=== PATIENT | female | born 1955 | race African-American/Black ===

== ENCOUNTER 2017-10-18 09:42 | Emergency (ER) | payer OTHER ==
[2017-10-18 11:22] LABS: ALT (SGPT) 29 U/L (8-55); AST (SGOT) 39 U/L (5-34); Alkaline Phosphatase 56 U/L (40-150); Anion Gap 16 mmol/L (10-20); BUN (Urea Nitrogen) 19 mg/dL (9.8-20.1); Bilirubin, Total 0.9 mg/dL (0.2-1.2); Calc. Creatinine Clearance 0 mL/min (70-130); Carbon Dioxide 23 mmol/L (23-31); Chloride 99 mmol/L (98-107); Estimated GFR-MDRD 40; Globulin 3.6 g/dL (2.4-3.5); Glucose 111 mg/dL (80-115); Potassium 3.3 mmol/L (3.5-5.1); Protein, Total 7.6 g/dL (6.0-8.3); Sodium 135 mmol/L (136-145)
[2017-10-18 11:27] LABS: Troponin I 0.023 ng/mL (< 0.028)
[2017-10-18 11:31] LABS: CKMB 10.8 ng/mL (0-6.6); Critical Call CKMBM 0
[2017-10-18 11:43] LABS: Anisocytosis MODERATE=16-30 cells (100X) (0-5/hpf); Hemoglobin 11.9 g/dL (12.0-16.0); Lymphocytes 31 % (21-51); MDiff Complete? YES; Mean Corpuscular HGB CONC 30.6 g/dL (32.0-36.0); Mean Corpuscular Hemoglobin 27.7 pg (27.0-31.0); Mean Corpuscular Volume 90.5 fl (81.0-99.0); Mean Platelet Volume 8.1 fL (7.4-10.4); Monocytes 11 % (0-10); Neutrophil 58 % (42-75); PLT Morphology Comment Appears Adequate; Platelet Count 311 thou/uL (130-400); Polychromasia SLIGHT = 2-3 cells (100X) (0-2/hpf); RBC Distribution Width 20.2 % (11.5-14.5); Red Blood Cell (RBC) Count 4.31 mill/uL (4.20-5.40); White Blood Cell (WBC) Count 4.5 thou/uL (4.8-10.8)
[2017-10-18] MEDS ORDERED: ISOVUE-370 76%-LOCM 1 ML ONE (11:46)
[2017-10-18 13:30] LABS: Bilirubin Small (Negative); Blood, Urine Negative (Negative); Clarity CLEAR (Clear); Glucose, Urine (Dipstick) Negative (Negative); Leukocyte Moderate (Negative); Nitrite Negative (Negative); Protein, Urine (Dipstick) Negative (Neg-Trace); Urobilinogen 0.2 mg/dL (0.2-1.0); pH, Urine 5.5 (5.0-9.0)
[2017-10-18 13:31] LABS: Bacteria/HPF None Seen HPF (None Seen); Hyaline Casts/LPF 4-6 HYALINE CAST LPF (0-3 Hyaline); Pathc Cast-AUWi Flag 1.16 (0-2.49); RBC/HPF 0-3 HPF (0-3)
[2017-10-18 13:35] LABS: Specific Gravity, Urine 1.045 (1.002-1.036)
--- NOTE | 2017-10-18 13:42 | CT ---
CT PULMONARY ANGIOGRAM CHEST WITH IV CONTRAST AND 3D MIP RECONSTRUCTIONS: Date: 10/18/17 PROVIDED CLINICAL HISTORY: Difficulty breathing and chest tightness. FINDINGS: There is no evidence for central or segmental pulmonary embolus. There is suboptimal opacification of the systemic arterial circulation at and distal to the aortic ar ch. There is a heterogeneous appearance to the opacification of the descending thoracic aorta. While some of this could be on the basis of mixing artifact, there are apparent linear areas of altered CT density in locations characteristic for dissection. Dissection flap is most strongly suggested on axi al image 113 involving the proximal abdominal aorta. The lungs appear free of significant opacity. The airway appears patent. Right apical pleural parench ymal scarring type changes are seen anteriorly. The visualized portions of the upper abdomen demonstr ate an unremarkable CT appearance for the phase of contrast in which the study was acquired, with the exception of prominent vascular calcification involving the abdominal aorta and proximal renal arter ies. IMPRESSION: 1. No evidence for central or segmental pulmonary embolus. 2. Abnormal appearance to the descending thoracic aorta, with findings suspicious for dissection. Mi sarah artifact could also produce this appearance, but is felt less likely. Consider repeat examinatio n when the patient's renal function will tolerate. Findings discussed with Dr. Flores in the emergency department at 1209 hours on 10/18/17. CODE CR. POS: [place]
--- NOTE | 2017-10-18 14:46 | CON ---
DATE OF CONSULTATION: 10/18/2017 REASON FOR CONSULTATION: Chest pain, possible dissection. HISTORY OF PRESENT ILLNESS: Ms. Zuluaga is a 62-year-old -[place] female, who comes to the [facility] for chest pain. She started having this earlier today, left-sided, currently radiated to the left abdomen. She comes in, and was evaluated. Troponin initially was negative, although CK-MB was high. A CT of the chest per pulmonary embolism protocol was performed and it was read out as having possibly dissection in the distal arch, proximal descending thoracic aorta. So, Cardiology is being consulted for further evaluation. It is thought to be prohibitive to repeat a CT with contrast in th e aortic portion given the patient's creatinine. So, I am being asked to perform a transesophageal e cho to rule this out, as this would mean that she needs to transfer. Currently, Ms. Zuluaga continues to have chest pain. She states it is a little bit better than before, but is still present. PAST MEDICAL HISTORY: 1. Hypertension. 2. Hepatitis C. 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 5. Lung cancer. PAST SURGICAL HISTORY: Total laryngectomy and lung surgery for lung cancer. ALLERGIES: No known drug allergies. OUTPATIENT MEDICATIONS: 1. Pantoprazole. 2. Ondansetron. 3. Nifedipine 60 mg a day. ALLERGIES: ROCEPHIN. SOCIAL HISTORY: A [id number] smoking history, quit few years ago when diagnosed with cancer. She drinks 1 alcoholic beverage a week. No drug use, but she was a previous heavy drug user and alcohol abuser per records. REVIEW OF SYSTEMS: A 12-point review of systems was done and is all negative unless stated in the hi story of present illness. FAMILY HISTORY: Noncontributory. PHYSICAL EXAMINATION: VITAL SIGNS: Blood pressure 160/100, respiratory rate 18, satting 98% on 2 liters, heart rate of 82. GENERAL: Awake, alert and oriented x3, in no distress. HEENT: Normocephalic and atraumatic. NECK: Supple. LUNGS: Clear. CARDIOVASCULAR: S1 and S2, no S3 or S4, no murmurs. ABDOMEN: Soft, positive bowel sounds. EXTREMITIES: No edema. Vascular pulses are equal on bilateral upper extremities and bilateral lower extremities. LABORATORY WORK: Reviewed. Sodium 135, potassium 3.3, creatinine is 1.58, and this is actually wors e than it has ever been, her baseline 0.7-0.8 range. CK-MB was 10. Troponin was 0.023. BNP was 31. CK was 234. EKG was reviewed. CTA was reviewed. ASSESSMENT: 1. Chest pain. 2. Possible aortic dissection. 3. History of lung cancer and laryngeal cancer. 4. Atherosclerotic disease, more significant in the renal arteries by CT. PLAN: 1. We will do an emergent transesophageal echo to reevaluate her thoracic aorta. If we cannot see a nything there, there is still an indication to do a contrast study, as my transesophageal echo will n ot be able to see the past the aortic arch, but if we are able to see a dissection flap on the transe sophageal echo, we would have made the diagnosis and plan on transferring to [place]. 2. If we end up not diagnosing any sort of dissection, then she needs to be still admitted for rule out, as she does have significant risk factors for coronary artery disease. Thank you for letting us participate in the care of your patient. We will follow.
[2017-10-18] MEDS ORDERED: Benzocaine 20% Spray 60 ML CAN ONE (15:01)
[2017-10-18] MEDS ORDERED: Esmolol 2,500 MG/NS 250 ML 250 ML ONE (15:24)
--- NOTE | 2017-10-18 16:02 | ECHO ---
DATE OF SERVICE: 10/18/2017. A transesophageal echo was performed for concern of dissection. Patient has ongoing chest pain and hypertension. The Anesthesiology department provided with sedation for the patient. Please see their notes for det ails. After adequate sedation was achieved, the transesophageal probe was inserted into the mouth an d into the esophagus with some difficulty. Multiplanar views were then obtained. The thoracic desce nding aorta seems to be intact with atherosclerotic disease. At the junction of the arch and the desc ending aorta. There is what appears to be a flap. This could be one of two things. It could be a di ssection plane versus an ulcerated plaque with a hematoma into the subintimal space. There is no percy w by color Doppler and in the space passed the flap only in the aorta which is still around and widel y patent. The atherosclerotic disease surrounding the aorta at that level actually goes around past the flap that is seen. I do not see any extravasation of blood outside of the aorta. The LV is normal size. LV systolic function is about 55-60% with no regional wall motion abnormalit ies. Aortic valve is intact with three cusps, no stenosis or regurgitation. Aortic root appears to be intact, normal size with no flap. There is atherosclerotic disease. Mitral valve has mild bileaflet mitral valve prolapse with mild MR, no stenosis. Tricuspid valve is structurally normal, no stenosis. Moderate TR. Pulmonary valve not well seen. No effusions are seen. CONCLUSIONS: 1. Normal systolic function, EF of 55-60%. 2. Mild bileaflet mitral valve prolapse with mild MR. 3. Tricuspid aortic valve with no evidence of stenosis or regurgitation. 4. Aortic root appears to be intact with atherosclerotic disease. 5. Descending thoracic aorta is intact with a grade III/V atherosclerotic disease. 6. The junction of the aortic arch and the thoracic descending aorta has an intimal flap suggestive of an aortic dissection. Possibilities also include an ulcerative plaque with subintimal hematoma. Would recommend repeat CT of the chest if patient remains stable. Otherwise, she needs to be transfe rred to [place] for a facility that has the capability of aortic surgery. This was discussed with Dr Renea Flores at the moment of the procedure and plans for transfer are already in place.
== END 2017-10-18 15:52 | disposition short-term general hospital (02) ==
LOC: ERS 09:42
DX: I71.01 Dissection of thoracic aorta (principal); J45.909 Unspecified asthma, uncomplicated; I10 Essential (primary) hypertension; Z85.118 Personal history of other malignant neoplasm of bronchus and lung; Z87.891 Personal history of nicotine dependence
CPT/HCPCS: 36415; 71275; 80053; 81003; 81015; 82553; 83880; 84484; 85025; 87040; 93005; 93312; 96361; 96374; 99152; 99153

== ENCOUNTER 2022-10-12 09:28 | Emergency (ER) | payer MEDICARE, OTHER ==
[2022-10-12 10:17] LABS: Bilirubin Negative (Negative); Blood, Urine Negative (Negative); Clarity Clear (Clear); Glucose, Urine (Dipstick) Normal (Negative); Ketone, Urine Negative (Negative); Leukocyte Negative Leu/uL (Negative); Nitrite Negative (Negative); Protein, Urine (Dipstick) Negative (Neg-Trace); Specific Gravity, Urine 1.015 (1.002-1.036)
[2022-10-12 10:20] LABS: Amphetamine Not Detected (NotDetected); Barbiturates Screen Not Detected (NotDetected); Benzodiazepine Screen Not Detected (NotDetected); Cocaine Metabolite Screen Not Detected (NotDetected); Methadone Not Detected (NotDetected); Methamphetamine Not Detected (NotDetected); Opiate Screen Not Detected (NotDetected); Oxycodone Screen Not Detected (NotDetected); Phencyclidine (PCP) Not Detected (NotDetected); THC/Cannabinoid Screen Detected (NotDetected); Tricyclic Screen Not Detected (NotDetected)
[2022-10-12 10:30] LABS: #Eosinphils 0.1 thou/uL (0.0-0.7); #Lymphocytes 2.1 thou/uL (1.20-3.40); #Monocytes 0.5 thou/uL (0.11-0.59); %Basophils 0.7 % (0.0-1.0); %Eosinophils 2.5 % (0.0-10.0); %Lymphocytes 36.5 % (21.0-51.0); %Monocytes 8.6 % (0.0-10.0); %Neutrophils 51.8 % (42.0-75.0); Hemoglobin 14.7 g/dL (12.0-16.0); Mean Corpuscular HGB CONC 32.2 g/dL (32.0-36.0); Mean Corpuscular Hemoglobin 29.6 pg (27.0-31.0); Mean Corpuscular Volume 92.1 fl (78.0-98.0); Mean Platelet Volume 8.5 fL (7.4-10.4); Platelet Count 219 10x3/uL (130-400); RBC Distribution Width 13.5 % (11.5-14.5); Red Blood Cell (RBC) Count 4.94 mill/uL (4.20-5.40); White Blood Cell (WBC) Count 5.9 10x3/uL (4.8-10.8)
[2022-10-12 10:50] LABS: ALT (SGPT) 19 U/L (8-55); AST (SGOT) 30 U/L (5-34); Acetaminophen Less than 10.0 mcg/mL (10.0-30.0); Albumin 3.6 g/dL (3.4-4.8); Alcohol Less than 10 mg/dL (Less than 10); Alkaline Phosphatase 75 U/L (40-110); Anion Gap 17 mmol/L (10-20); BUN (Urea Nitrogen) 15 mg/dL (9.8-20.1); Bilirubin, Total 0.9 mg/dL (0.2-1.2); Calc. Creatinine Clearance 0 mL/min (70-130); Calcium 9.2 mg/dL (7.8-10.44); Carbon Dioxide 18 mmol/L (23-31); Chloride 104 mmol/L (98-107); Estimated GFR 96; Globulin 3.4 g/dL (2.4-3.5); Glucose 78 mg/dL (80-115); Potassium 5.3 mmol/L (3.5-5.1); Salicylate Less than 8.0 mg/dL (15.0-30.0); Sodium 134 mmol/L (136-145)
== END 2022-10-12 11:41 | disposition left against medical advice (07) ==
LOC: ERS 09:28
DX: R41.82 Altered mental status, unspecified (principal); F03.90 Unspecified dementia, unspecified severity, without behavioral disturbance, psychotic disturbance, mood disturbance, and anxiety; R00.1 Bradycardia, unspecified; I10 Essential (primary) hypertension; F17.200 Nicotine dependence, unspecified, uncomplicated; E11.9 Type 2 diabetes mellitus without complications; Z85.118 Personal history of other malignant neoplasm of bronchus and lung
CPT/HCPCS: 51701; 70450; 71045; 80053; 80306; 80307; 81003; 83605; 83735; 84484; 85025; 87086; 93005

== ENCOUNTER 2022-10-20 16:27 | Emergency (ER) | payer MEDICARE, OTHER ==
[2022-10-20 17:23] LABS: #Eosinphils 0.1 thou/uL (0.0-0.7); #Lymphocytes 1.2 thou/uL (1.20-3.40); #Monocytes 0.7 thou/uL (0.11-0.59); %Basophils 0.1 % (0.0-1.0); %Eosinophils 1.8 % (0.0-10.0); %Lymphocytes 16.8 % (21.0-51.0); %Neutrophils 71.5 % (42.0-75.0); Hemoglobin 11.9 g/dL (12.0-16.0); Mean Corpuscular HGB CONC 33.9 g/dL (32.0-36.0); Mean Corpuscular Hemoglobin 30.6 pg (27.0-31.0); Mean Corpuscular Volume 90.3 fl (78.0-98.0); Mean Platelet Volume 8.2 fL (7.4-10.4); Platelet Count 221 10x3/uL (130-400); RBC Distribution Width 13.7 % (11.5-14.5); Red Blood Cell (RBC) Count 3.89 mill/uL (4.20-5.40)
[2022-10-20 17:48] LABS: ALT (SGPT) 15 U/L (8-55); AST (SGOT) 23 U/L (5-34); Alkaline Phosphatase 64 U/L (40-110); Anion Gap 13 mmol/L (10-20); BUN (Urea Nitrogen) 16 mg/dL (9.8-20.1); Bilirubin, Total 0.2 mg/dL (0.2-1.2); CK (CPK) 75 U/L (29-168); Calc. Creatinine Clearance 0 mL/min (70-130); Calcium 8.6 mg/dL (7.8-10.44); Carbon Dioxide 23 mmol/L (23-31); Chloride 97 mmol/L (98-107); Estimated GFR 92; Globulin 2.7 g/dL (2.4-3.5); Glucose 136 mg/dL (80-115); Lipase 79 U/L (8-78); Potassium 4.3 mmol/L (3.5-5.1); Protein, Total 5.7 g/dL (5.8-8.1); Sodium 129 mmol/L (136-145)
[2022-10-20 18:28] LABS: Bilirubin Negative (Negative); Blood, Urine Negative (Negative); Clarity Clear (Clear); Glucose, Urine (Dipstick) Normal (Negative); Ketone, Urine Negative (Negative); Leukocyte Negative Leu/uL (Negative); Nitrite Negative (Negative); Protein, Urine (Dipstick) Negative (Neg-Trace); Specific Gravity, Urine 1.011 (1.002-1.036); Urobilinogen Normal mg/dL (Less than 2)
== END 2022-10-20 21:00 ==
LOC: ERS 16:27
DX: R41.82 Altered mental status, unspecified (principal); I10 Essential (primary) hypertension; E11.9 Type 2 diabetes mellitus without complications
CPT/HCPCS: 36415; 70450; 71045; 81003; 82140; 82550; 83690; 83880; 84443; 84484; 85025; 93005

== ENCOUNTER 2022-10-31 08:24 | Emergency (ER) | payer MEDICARE, OTHER ==
[2022-10-31] MEDS ORDERED: Haloperidol Lactate 5 MG/ML VIAL ONE (09:45)
[2022-10-31 10:01] LABS: #Basophils 0.1 thou/uL (0.0-0.2); #Eosinphils 0.1 thou/uL (0.0-0.7); #Lymphocytes 2.6 thou/uL (1.20-3.40); #Monocytes 0.6 thou/uL (0.11-0.59); #Neutrophils 2.6 thou/uL (1.40-6.50); %Basophils 1.2 % (0.0-1.0); %Eosinophils 2.3 % (0.0-10.0); %Lymphocytes 42.5 % (21.0-51.0); %Monocytes 10.3 % (0.0-10.0); %Neutrophils 43.6 % (42.0-75.0); Hemoglobin 12.8 g/dL (12.0-16.0); Mean Corpuscular HGB CONC 31.7 g/dL (32.0-36.0); Mean Corpuscular Hemoglobin 28.6 pg (27.0-31.0); Mean Corpuscular Volume 90.3 fl (78.0-98.0); Mean Platelet Volume 7.5 fL (7.4-10.4); Platelet Count 277 10x3/uL (130-400); RBC Distribution Width 13.7 % (11.5-14.5); Red Blood Cell (RBC) Count 4.46 mill/uL (4.20-5.40); White Blood Cell (WBC) Count 6.1 10x3/uL (4.8-10.8)
[2022-10-31] MEDS ORDERED: Midazolam HCl 2 mg/2 ml Vial ONE (10:22)
[2022-10-31 10:32] LABS: ALT (SGPT) 24 U/L (8-55); AST (SGOT) 38 U/L (5-34); Albumin 4.1 g/dL (3.4-4.8); Alkaline Phosphatase 97 U/L (40-110); Anion Gap 15 mmol/L (10-20); BUN (Urea Nitrogen) 15 mg/dL (9.8-20.1); Bilirubin, Total 0.7 mg/dL (0.2-1.2); Calc. Creatinine Clearance 0 mL/min (70-130); Carbon Dioxide 25 mmol/L (23-31); Chloride 103 mmol/L (98-107); Estimated GFR 78; Globulin 4.5 g/dL (2.4-3.5); Glucose 82 mg/dL (80-115); Potassium 4.6 mmol/L (3.5-5.1); Protein, Total 8.6 g/dL (5.8-8.1); Sodium 138 mmol/L (136-145)
== END 2022-10-31 12:56 ==
LOC: ERS 08:24
DX: I10 Essential (primary) hypertension (principal); R45.1 Restlessness and agitation; J45.909 Unspecified asthma, uncomplicated
CPT/HCPCS: 36415; 71045; 80053; 84484; 85025; 93005; 96372; J1630; J2250

== ENCOUNTER 2024-02-14 10:00 | Inpatient (IN) | payer MEDICARE, MEDICAID ==
[2024-02-14] MEDS ORDERED: Iopamidol-370 76% 500 ML MDV (1 ML CHARGE) ONE (11:00)
[2024-02-14 11:09] LABS: #Basophils Less than 0.03 10x3/uL (0.0-0.2); %Basophils 0.1 % (0.0-1.0); %Eosinophils 1.3 % (0.0-10.0); %Lymphocytes 15.2 % (21.0-51.0); %Monocytes 8.2 % (0.0-10.0); %Neutrophils 73.9 % (42.0-75.0); Hematocrit 30.6 % (36.0-47.0); Hemoglobin 9.9 g/dL (12.0-16.0); Mean Corpuscular HGB CONC 32.4 g/dL (32.0-36.0); Mean Corpuscular Hemoglobin 29.4 pg (27.0-31.0); Mean Corpuscular Volume 90.8 fL (78.0-98.0); Mean Platelet Volume 11.8 fL (7.4-10.4); Platelet Count 122 10x3/uL (130-400); RBC Distribution Width 21.6 % (11.5-14.5); Red Blood Cell (RBC) Count 3.37 mill/uL (4.20-5.40)
[2024-02-14 11:16] LABS: ALT (SGPT) 11 U/L (8-55); AST (SGOT) 20 U/L (5-34); Albumin 1.7 g/dL (3.4-4.8); Alkaline Phosphatase 36 U/L (40-110); Anion Gap 7 mmol/L (10-20); BUN (Urea Nitrogen) 26 mg/dL (9.8-20.1); Bilirubin, Total 0.7 mg/dL (0.2-1.2); Calc. Creatinine Clearance 0 mL/min (70-130); Calcium 7.5 mg/dL (7.8-10.44); Carbon Dioxide 24 mmol/L (23-31); Chloride 117 mmol/L (98-107); Estimated GFR 76; Globulin 2.5 g/dL (2.4-3.5); Glucose 232 mg/dL (80-115); Potassium 3.5 mmol/L (3.5-5.1); Protein, Total 4.2 g/dL (5.8-8.1); Sodium 144 mmol/L (136-145)
[2024-02-14 11:20] LABS: Troponin I 0.037 ng/mL (< 0.028)
[2024-02-14 11:22] LABS: Actual Bicarbonate (HCO3a) 24.3 mEq/L (22-28); Analyzer IN Cardio ER; Base Excess (BEa) 0.3 mEq/L (-2.0 to +3.0); CO2 Tension 36.8 mmHg (35.0-45.0); Calcium, Ionized (arterial) 1.18 mmol/L (1.12-1.30); Carboxyhemoglobin (COHb) 0.2 gm% (0.0-3.0); Hematocrit-ABG 32 % (36.0-47.0); Hemoglobin (Hb) 10.9 g/dL (12.0-16.0); O2 Tension (PaO2), arterial 64.7 mmHg (> 80.0); Potassium - ABG Lab 3.37 mmol/L (3.70-5.30); pH, Arterial 7.437 (7.35-7.45)
[2024-02-14 11:24] LABS: Puncture Site LRA
[2024-02-14 12:06] LABS: Bilirubin Negative (Negative); Blood, Urine Negative (Negative); CAUTI Indications for Culture Alt mental st,lethar; Clarity Turbid (Clear); Glucose, Urine (Dipstick) Normal (Negative); Ketone, Urine Trace mg/dL (Negative); Leukocyte 500 Leu/uL (Negative); Nitrite Negative (Negative); Protein, Urine (Dipstick) 50 mg/dL (Neg-Trace); RBC/HPF 0-3 HPF (0-3); Squamous Epithelial 0-3 HPF (0-3); Urobilinogen 6 mg/dL (Less than 2)
[2024-02-14 12:14] LABS: Bacteria/HPF 2+ HPF (None Seen); WBC/HPF 21-50 HPF (0-3); Yeast-Budding 2+ HPF (None Seen); Yeast-Hyphae 1+ HPF (None Seen)
[2024-02-14 12:15] LABS: Urine Culture Reflex Yes Yes
[2024-02-14 12:15] LABS: Anisocytosis SLIGHT = 6-15 cells HPF (0-5); Burr Cells SLIGHT = 2-5 cells HPF (0-1); Hypochromia SLIGHT = 6-15 cells HPF (0-5); Macrocytosis SLIGHT = 6-15 cells HPF (0-5); Ovalocytes SLIGHT = 2-5 cells HPF (0-1); Platelet Adequacy Comment Platelets Decreased; Polychromasia SLIGHT = 2-3 cells HPF (0-2)
[2024-02-14] MEDS ORDERED: Ciprofloxacin Lactate D5W 400 mg (200 mL) BAG ONE (12:39)
[2024-02-14 12:53] LABS: Influenza A by NAA Not Detected (NotDetected); Influenza B by NAA Not Detected (NotDetected); SARS-CoV-2 NAA Rapid Test Not Detected (NotDetected)
[2024-02-14] MEDS ORDERED: CALCIUM GLUC 1 GM/NS 50 ML IV Bag ONE (14:31)
[2024-02-14] MEDS ORDERED: Glucagon 1 MG/ML KIT IM PRN (14:37)
[2024-02-14] MEDS ORDERED: Dextrose 50% Abboject 50 ML SYRINGE SLOW IVP PRN (14:37)
[2024-02-14] MEDS ORDERED: Insulin Regular, Human 100 UNIT/ML 10 ML VIAL SC PRN (14:37)
[2024-02-14] MEDS ORDERED: Dextrose 5% in Water 1,000 ML IV PRN (14:37)
[2024-02-14] MEDS ORDERED: Acetaminophen 650 MG Suppository PR PRN (14:44)
[2024-02-14] MEDS ORDERED: Ondansetron ODT 4 MG TAB PO PRN (14:44)
[2024-02-14] MEDS ORDERED: Ipratropium/Albuterol 3 ML NEB NEB PRN (18:13)
[2024-02-14] MEDS ORDERED: Piperacillin/Tazobactam 3.375 GM VIAL ONE (20:06)
[2024-02-14] MEDS ORDERED: Sodium Chloride 0.9% 100 ML ONE (20:06)
[2024-02-14] MEDS: Sodium Chloride 0.9% 1,000 ML IV SCH (20:13)
[2024-02-14] MEDS: Piperacillin/Tazobactam 3.375 GM in Sodium Chloride 0.9% 100 ML IVPB SCH (20:13)
[2024-02-14] MEDS ORDERED: Ciprofloxacin Lactate/D5W 400 MG in Premix 1 BAG IVPB SCH (21:00)
[2024-02-14] MEDS ORDERED: Famotidine/PF 20 mg/2ml Vial ONE (22:47)
[2024-02-14] MEDS: Famotidine/PF 20 mg/2ml Vial SLOW IVP SCH (23:03)
[2024-02-14 23:56] VITALS: BMI 22.1
[2024-02-15] MEDS: Piperacillin/Tazobactam 3.375 GM in Sodium Chloride 0.9% 100 ML IVPB SCH (00:12)
[2024-02-15 04:17] LABS: #Basophils 0.04 10x3/uL (0.0-0.2); %Basophils 0.3 % (0.0-1.0); %Eosinophils 1.4 % (0.0-10.0); %Lymphocytes 15.6 % (21.0-51.0); %Monocytes 8.4 % (0.0-10.0); %Neutrophils 73.2 % (42.0-75.0); Hematocrit 35.1 % (36.0-47.0); Hemoglobin 11.1 g/dL (12.0-16.0); Mean Corpuscular HGB CONC 31.6 g/dL (32.0-36.0); Mean Corpuscular Hemoglobin 29.3 pg (27.0-31.0); Mean Corpuscular Volume 92.6 fL (78.0-98.0); Mean Platelet Volume 11.1 fL (7.4-10.4); Platelet Count 137 10x3/uL (130-400); RBC Distribution Width 21.8 % (11.5-14.5); Red Blood Cell (RBC) Count 3.79 mill/uL (4.20-5.40)
[2024-02-15 04:33] LABS: Anion Gap 11 mmol/L (10-20); BUN (Urea Nitrogen) 19 mg/dL (9.8-20.1); Calc. Creatinine Clearance 70 mL/min (70-130); Calcium 7.7 mg/dL (7.8-10.44); Carbon Dioxide 20 mmol/L (23-31); Chloride 115 mmol/L (98-107); Estimated GFR 87; Glucose 114 mg/dL (80-115); Potassium 3.4 mmol/L (3.5-5.1); Sodium 143 mmol/L (136-145)
[2024-02-16 05:20] LABS: #Basophils Less than 0.03 10x3/uL (0.0-0.2); %Basophils 0.1 % (0.0-1.0); %Eosinophils 1.3 % (0.0-10.0); %Lymphocytes 15.4 % (21.0-51.0); %Monocytes 10.6 % (0.0-10.0); %Neutrophils 71.7 % (42.0-75.0); Hematocrit 31.6 % (36.0-47.0); Hemoglobin 10.4 g/dL (12.0-16.0); Mean Corpuscular HGB CONC 32.9 g/dL (32.0-36.0); Mean Corpuscular Hemoglobin 29.5 pg (27.0-31.0); Mean Corpuscular Volume 89.5 fL (78.0-98.0); Platelet Count 125 10x3/uL (130-400); RBC Distribution Width 21.2 % (11.5-14.5); Red Blood Cell (RBC) Count 3.53 mill/uL (4.20-5.40)
[2024-02-16 05:42] LABS: ALT (SGPT) 12 U/L (8-55); AST (SGOT) 23 U/L (5-34); Albumin 1.7 g/dL (3.4-4.8); Alkaline Phosphatase 40 U/L (40-110); Anion Gap 13 mmol/L (10-20); BUN (Urea Nitrogen) 13 mg/dL (9.8-20.1); Bilirubin, Total 0.9 mg/dL (0.2-1.2); Calc. Creatinine Clearance 79 mL/min (70-130); Carbon Dioxide 19 mmol/L (23-31); Chloride 114 mmol/L (98-107); Estimated GFR 95; Globulin 2.5 g/dL (2.4-3.5); Glucose 91 mg/dL (80-115); Magnesium 1.6 mg/dL (1.6-2.6); Potassium 3.1 mmol/L (3.5-5.1); Protein, Total 4.2 g/dL (5.8-8.1); Sodium 143 mmol/L (136-145)
[2024-02-16] MEDS: Potassium Chloride 20 MEQ in Premix 1 BAG IVPB SCH (09:20)
[2024-02-17 06:33] LABS: #Basophils Less than 0.03 10x3/uL (0.0-0.2); %Basophils 0.1 % (0.0-1.0); %Eosinophils 0.9 % (0.0-10.0); %Lymphocytes 17.4 % (21.0-51.0); %Monocytes 13.3 % (0.0-10.0); %Neutrophils 67.2 % (42.0-75.0); Hematocrit 31.1 % (36.0-47.0); Hemoglobin 10.2 g/dL (12.0-16.0); Mean Corpuscular HGB CONC 32.8 g/dL (32.0-36.0); Mean Corpuscular Hemoglobin 29.9 pg (27.0-31.0); Mean Corpuscular Volume 91.2 fL (78.0-98.0); Mean Platelet Volume 11.2 fL (7.4-10.4); Platelet Count 236 10x3/uL (130-400); RBC Distribution Width 20.7 % (11.5-14.5); Red Blood Cell (RBC) Count 3.41 mill/uL (4.20-5.40)
[2024-02-17 06:49] LABS: Anion Gap 10 mmol/L (10-20); BUN (Urea Nitrogen) 9 mg/dL (9.8-20.1); Calc. Creatinine Clearance 84 mL/min (70-130); Calcium 7.3 mg/dL (7.8-10.44); Carbon Dioxide 22 mmol/L (23-31); Chloride 108 mmol/L (98-107); Estimated GFR 97; Glucose 87 mg/dL (80-115); Sodium 137 mmol/L (136-145)
[2024-02-17 08:39] LABS: Magnesium 1.5 mg/dL (1.6-2.6)
[2024-02-17] MEDS ORDERED: hydrALAZINE 25 MG TAB PER TUBE PRN (09:09)
[2024-02-17] MEDS: Amoxicillin/Potassium Clav 600 mg/5 ml Oral Suspension PER TUBE SCH ×2 (12:13→20:45)
[2024-02-17 13:25] VITALS: BMI 22.1
[2024-02-17] MEDS: Lansoprazole 30 MG/10 ML UDCUP PER TUBE SCH (20:44)
[2024-02-18 06:22] LABS: Anion Gap 10 mmol/L (10-20); BUN (Urea Nitrogen) 13 mg/dL (9.8-20.1); Calc. Creatinine Clearance 81 mL/min (70-130); Calcium 7.2 mg/dL (7.8-10.44); Carbon Dioxide 24 mmol/L (23-31); Chloride 106 mmol/L (98-107); Estimated GFR 96; Glucose 138 mg/dL (80-115); Potassium 3.2 mmol/L (3.5-5.1); Sodium 137 mmol/L (136-145)
[2024-02-18] MEDS: Potassium Bicarbonate/Cit Ac 20 MEQ TAB PER TUBE SCH (13:34)
[2024-02-18 17:20] VITALS: BP 130/79; TEMP 98.1
== END 2024-02-18 18:47 | disposition home or self-care (01) | DRG 871 ==
LOC: ERS 10:00 → ERHOLD 14:12 → 2SE 23:15 → T4-A 02-16 19:44
PROVIDERS: ADMIT Internal Medicine; ATTEND Internal Medicine
PROC: 3E03329 Introduction of Other Anti-infective into Peripheral Vein, Percutaneous Approach (ICD-10-PCS; principal; 2024-02-14)
PROC: 4A033R1 Measurement of Arterial Saturation, Peripheral, Percutaneous Approach (ICD-10-PCS; 2024-02-14)
DX: A41.9 Sepsis, unspecified organism (principal); J18.9 Pneumonia, unspecified organism; J96.01 Acute respiratory failure with hypoxia; C34.12 Malignant neoplasm of upper lobe, left bronchus or lung; J90 Pleural effusion, not elsewhere classified; I50.42 Chronic combined systolic (congestive) and diastolic (congestive) heart failure; Z51.5 Encounter for palliative care; E87.6 Hypokalemia; E83.42 Hypomagnesemia; R91.8 Other nonspecific abnormal finding of lung field; E03.9 Hypothyroidism, unspecified; I10 Essential (primary) hypertension; E11.9 Type 2 diabetes mellitus without complications; F31.9 Bipolar disorder, unspecified; F03.90 Unspecified dementia, unspecified severity, without behavioral disturbance, psychotic disturbance, mood disturbance, and anxiety; Z88.8 Allergy status to other drugs, medicaments and biological substances; Z79.890 Hormone replacement therapy; Z79.899 Other long term (current) drug therapy; Z98.890 Other specified postprocedural states
CPT/HCPCS: 36415; 36416; 36600; 71045; 71275; 80048; 80053; 81001; 82805; 83605; 83735; 83880; 84443; 84484; 85025; 85379; 87040; 87077; 87086; 87149; 93005; 96365; 96367; J0613; J0744; J2543; J3480; J3490; J7050; Q9967; S0028

== ENCOUNTER 2024-03-10 03:12 | Inpatient (IN) | payer MEDICARE, MEDICAID ==
[2024-03-10] MEDS ORDERED: NOREPINEPHRINE 8 MG/250 ML-D5W 250 ML ONE (03:23)
[2024-03-10] MEDS ORDERED: Rocuronium Bromide 10 MG/ML (10ML VIAL) ONE (03:35)
[2024-03-10] MEDS ORDERED: Etomidate 40 MG (20 mL) VIAL ONE (03:35)
[2024-03-10] MEDS ORDERED: Fentanyl CADD 100 ML IV SCH (04:00)
[2024-03-10 04:01] LABS: Actual Bicarbonate (HCO3a) 22.4 mEq/L (22-28); Analyzer IN Cardio ER; Base Excess (BEa) 0.1 mEq/L (-2.0 to +3.0); CO2 Tension 29.6 mmHg (35.0-45.0); Calcium, Ionized (arterial) 1.11 mmol/L (1.12-1.30); Carboxyhemoglobin (COHb) 0.1 gm% (0.0-3.0); Hematocrit-ABG 39 % (36.0-47.0); Hemoglobin (Hb) 13.1 g/dL (12.0-16.0); O2 Tension (PaO2), arterial 395.3 mmHg (> 80.0); Potassium - ABG Lab 3.86 mmol/L (3.70-5.30); pH, Arterial 7.496 (7.35-7.45)
[2024-03-10 04:12] LABS: Puncture Site Left Radial artery
[2024-03-10 04:51] LABS: ALT (SGPT) 17 U/L (8-55); AST (SGOT) 29 U/L (5-34); Alkaline Phosphatase 137 U/L (40-110); Anion Gap 18 mmol/L (10-20); BUN (Urea Nitrogen) 19 mg/dL (9.8-20.1); Bilirubin, Total 0.7 mg/dL (0.2-1.2); Calc. Creatinine Clearance 0 mL/min (70-130); Calcium 8.3 mg/dL (7.8-10.44); Carbon Dioxide 20 mmol/L (23-31); Chloride 99 mmol/L (98-107); Estimated GFR 88; Globulin 3.9 g/dL (2.4-3.5); Glucose 238 mg/dL (80-115); Potassium 4.4 mmol/L (3.5-5.1); Protein, Total 5.9 g/dL (5.8-8.1); Sodium 133 mmol/L (136-145)
[2024-03-10 04:59] LABS: Hematocrit 37.3 % (36.0-47.0); Hemoglobin 12.3 g/dL (12.0-16.0); Mean Corpuscular Hemoglobin 30.9 pg (27.0-31.0); Mean Corpuscular Volume 93.7 fL (78.0-98.0); Mean Platelet Volume 11.1 fL (7.4-10.4); Platelet Count 455 10x3/uL (130-400); RBC Distribution Width 18.6 % (11.5-14.5); Red Blood Cell (RBC) Count 3.98 mill/uL (4.20-5.40)
[2024-03-10] MEDS ORDERED: LevoFLOXacin 750 mg/D5W 150 ml Premix Bag ONE (05:00)
[2024-03-10 05:01] LABS: Troponin I 0.211 ng/mL (< 0.028)
[2024-03-10 05:26] LABS: Prothrombin Time 13.6 sec (12.0-14.7)
[2024-03-10 05:27] LABS: PTT 30.4 sec (22.9-36.1)
[2024-03-10 05:37] LABS: Bilirubin Negative (Negative); Blood, Urine Negative (Negative); Clarity Clear (Clear); Glucose, Urine (Dipstick) 30 mg/dL (Negative); Ketone, Urine Negative (Negative); Leukocyte 250 Leu/uL (Negative); Nitrite Negative (Negative); Protein, Urine (Dipstick) 10 mg/dL (Neg-Trace); Specific Gravity, Urine 1.012 (1.002-1.036); Urobilinogen Normal mg/dL (Less than 2); pH, Urine 7.5 (5.0-9.0)
[2024-03-10] MEDS ORDERED: Ondansetron ODT 4 MG TAB PO PRN (05:57)
[2024-03-10] MEDS ORDERED: Acetaminophen 325 MG TAB PO PRN (05:57)
[2024-03-10] MEDS ORDERED: Ondansetron PF 4 MG/2 ML Vial IVP PRN (05:57)
[2024-03-10] MEDS ORDERED: Glucagon 1 MG/ML KIT IM PRN (06:05)
[2024-03-10] MEDS ORDERED: Dextrose 5% in Water 1,000 ML IV PRN (06:05)
[2024-03-10] MEDS ORDERED: Dextrose 50% Abboject 50 ML SYRINGE SLOW IVP PRN (06:05)
[2024-03-10] MEDS ORDERED: Electrolyte Replacement Protocol 1 EACH FS PRN (06:06)
[2024-03-10 06:14] LABS: CAUTI Indications for Culture Alt mental st,lethar; RBC/HPF 0-3 HPF (0-3); Squamous Epithelial 0-3 HPF (0-3); Transitional Epithelial 0-3 HPF (None Seen); Urine Culture Reflex No No; Yeast-Budding 2+ HPF (None Seen); Yeast-Hyphae 1+ HPF (None Seen)
[2024-03-10] MEDS ORDERED: Ipratropium/Albuterol 3 ML NEB NEB PRN (06:14)
[2024-03-10] MEDS ORDERED: Lorazepam 2 MG/ML VIAL ONE (06:21)
[2024-03-10 06:29] LABS: Anisocytosis SLIGHT = 6-15 cells HPF (0-5); Band 19 % (5-11); Lymphocytes 2 % (21-51); Macrocytosis SLIGHT = 6-15 cells HPF (0-5); Neutrophil 79 % (42-75); Platelet Adequacy Comment Platelets Normal; Polychromasia SLIGHT = 2-3 cells HPF (0-2); Smudge Cells 8.1 %
[2024-03-10] MEDS ORDERED: Lorazepam 2 MG/ML VIAL SLOW IVP PRN (06:30)
[2024-03-10] MEDS ORDERED: DISCONTINUE PREVIOUS NARCOTIC PAIN MEDICATIONS AND BENZODIAZEPINES FS SCH (06:30)
[2024-03-10] MEDS ORDERED: Propofol BOLUS 1,000 MG/100 ML VIAL IV PRN (06:30)
[2024-03-10] MEDS ORDERED: Morphine 2 MG/ML VIAL SLOW IVP PRN (06:30)
[2024-03-10] MEDS ORDERED: Propofol 1,000 MG/100 ML VIAL IV PRN (06:30)
[2024-03-10] MEDS ORDERED: Fentanyl BOLUS 250 ML IVPB PRN (06:30)
[2024-03-10] MEDS: NOREPINEPHRINE 8 MG/250 ML-D5W 250 ML IVPB SCH (06:50)
[2024-03-10] MEDS: Ventilator Sedation Protocol 1 EACH FS ONE (06:50)
[2024-03-10] MEDS: Ipratropium/Albuterol 3 ML NEB NEB SCH (07:24)
[2024-03-10 08:00] LABS: Lactic Acid 3.5 mmol/L (0.5-2.2)
[2024-03-10] MEDS: Lactated Ringer's 500 ML IV SCH ×2 (08:15→10:30)
[2024-03-10] MEDS ORDERED: VANC IVPB PRN (08:17)
[2024-03-10 08:18] LABS: Troponin I 0.619 ng/mL (< 0.028)
[2024-03-10] MEDS: Piperacillin/Tazobactam 3.375 GM in Sodium Chloride 0.9% 100 ML IVPB SCH ×2 (08:30→10:45)
[2024-03-10] MEDS: Pantoprazole 40 MG VIAL IVP SCH (08:30)
[2024-03-10] MEDS: Enoxaparin 40 MG (0.4 mL) SYRINGE SC SCH (08:30)
[2024-03-10] MEDS: Sodium Chloride 0.9% 1,000 ML IV SCH (08:35)
[2024-03-10] MEDS: Vancomycin (BATCH) 1.25 GM in Premix 1 BAG IVPB SCH (08:50)
[2024-03-10] MEDS ORDERED: Vancomycin (BATCH) 1.25 GM in Premix 1 BAG IVPB SCH (09:00)
[2024-03-10] MEDS ORDERED: Iopamidol-370 76% 500 ML MDV (1 ML CHARGE) ONE (10:02)
[2024-03-10 10:27] LABS: Troponin I 0.788 ng/mL (< 0.028)
[2024-03-10] MEDS: Vasopressin In 0.9 % NaCl 40 UNIT in Premix 1 BAG IV SCH (10:30)
[2024-03-10] MEDS: Hydrocortisone Sod Succ/PF 100 mg/2 ml Vial IVP SCH ×2 (10:45→16:15)
[2024-03-10] MEDS: Albumin 25% 25 GM (100 mL) BOT IVPB SCH ×2 (10:45→16:15)
[2024-03-10] MEDS: Insulin Lispro 100 UNIT/ML 10 ML VIAL SC PRN (11:45)
[2024-03-10] MEDS ORDERED: methylPREDNISolone Sod Succ 40 MG VIAL IVP SCH (12:00)
[2024-03-11] MEDS: Lactated Ringer's 1,000 ML IV SCH (00:11)
[2024-03-11 05:44] LABS: Anion Gap 14 mmol/L (10-20); BUN (Urea Nitrogen) 21 mg/dL (9.8-20.1); Calc. Creatinine Clearance 70 mL/min (70-130); Calcium 7.7 mg/dL (7.8-10.44); Carbon Dioxide 21 mmol/L (23-31); Chloride 103 mmol/L (98-107); Estimated GFR 83; Glucose 168 mg/dL (80-115); Potassium 3.1 mmol/L (3.5-5.1); Sodium 135 mmol/L (136-145)
[2024-03-11 05:52] LABS: Vancomycin, Random 30.1 ug/mL (See Comment)
[2024-03-11 06:28] LABS: Hematocrit 20.5 % (36.0-47.0); Hemoglobin 6.8 g/dL (12.0-16.0); Mean Corpuscular HGB CONC 33.2 g/dL (32.0-36.0); Mean Corpuscular Hemoglobin 30.1 pg (27.0-31.0); Mean Corpuscular Volume 90.7 fL (78.0-98.0); Mean Platelet Volume 10.6 fL (7.4-10.4); Platelet Count 154 10x3/uL (130-400); RBC Distribution Width 18.9 % (11.5-14.5); Red Blood Cell (RBC) Count 2.26 mill/uL (4.20-5.40)
[2024-03-11 06:41] LABS: Actual Bicarbonate (HCO3a) 18.6 mEq/L (22-28); Base Excess (BEa) -4.4 mEq/L (-2.0 to +3.0); CO2 Tension 26.6 mmHg (35.0-45.0); Calcium, Ionized (arterial) 1.06 mmol/L (1.12-1.30); Carboxyhemoglobin (COHb) 0.5 gm% (0.0-3.0); Hematocrit-ABG 23 % (36.0-47.0); Hemoglobin (Hb) 7.8 g/dL (12.0-16.0); Potassium - ABG Lab 3.11 mmol/L (3.70-5.30); pH, Arterial 7.463 (7.35-7.45)
[2024-03-11 06:42] LABS: Puncture Site Right Radial artery
[2024-03-11 06:50] LABS: Band 39 % (5-11); Hypochromia SLIGHT = 6-15 cells HPF (0-5); Lymphocytes 5 % (21-51); Metamyelocyte 1 % (0-0); Neutrophil 55 % (42-75); Platelet Adequacy Comment Platelets Normal; Polychromasia SLIGHT = 2-3 cells HPF (0-2); Smudge Cells 2.9 %; Tear Drops SLIGHT = 2-5 cells HPF (0-1)
[2024-03-11 07:57] VITALS: BMI 23.3
[2024-03-11] MEDS: Potassium Chloride 20 MEQ in Premix 1 BAG IVPB SCH (08:10)
[2024-03-11] MEDS: Vancomycin HCl 500 MG in Sodium Chloride 0.9% 100 ML IVPB SCH (08:30)
[2024-03-11] MEDS: Lactated Ringer's 500 ML IV SCH (08:45)
[2024-03-11 09:27] LABS: Hematocrit 19.4 % (36.0-47.0); Hemoglobin 6.6 g/dL (12.0-16.0); Mean Corpuscular Hemoglobin 31.6 pg (27.0-31.0); Mean Corpuscular Volume 92.8 fL (78.0-98.0); Platelet Count 141 10x3/uL (130-400); Red Blood Cell (RBC) Count 2.09 mill/uL (4.20-5.40)
[2024-03-11 10:14] LABS: Band 30 % (5-11); Burr Cells MODERATE= 6-15 cells HPF (0-1); Elliptocytes SLIGHT = 2-5 cells HPF (0-1); Lymphocytes 1 % (21-51); Metamyelocyte 2 % (0-0); Monocytes 3 % (0-10); Neutrophil 63 % (42-75); Platelet Adequacy Comment Platelets Normal; Poikilocytosis SLIGHT = 6-15 cells HPF (0-5); Polychromasia SLIGHT = 2-3 cells HPF (0-2); Reactive Lymphocytes 1 % (0-10)
[2024-03-11 10:24] LABS: Lactic Acid 2.4 mmol/L (0.5-2.2)
[2024-03-11] MEDS: Refresh Lacri-lube Opth Oint 7 GM TUBE EA EYE SCH (11:40)
[2024-03-11] MEDS: MINERAL OIL/WHITE PETROLATUM 3.5 GM TUBE EA EYE SCH (11:40)
[2024-03-11 12:07] LABS: Hematocrit 23.4 % (36.0-47.0); Hemoglobin 8.2 g/dL (12.0-16.0); Platelet Count 155 10x3/uL (130-400)
[2024-03-11 13:44] LABS: Potassium 3.8 mmol/L (3.5-5.1)
[2024-03-11] MEDS: Fentanyl CADD 100 ML IV SCH (17:35)
[2024-03-12] MEDS: Insulin Lispro 100 UNIT/ML 10 ML VIAL SC PRN (00:42)
[2024-03-12 04:54] LABS: Hematocrit 26.1 % (36.0-47.0); Hemoglobin 8.9 g/dL (12.0-16.0); Mean Corpuscular HGB CONC 34.1 g/dL (32.0-36.0); Mean Corpuscular Volume 90.9 fL (78.0-98.0); Mean Platelet Volume 11.6 fL (7.4-10.4); Platelet Count 164 10x3/uL (130-400); RBC Distribution Width 19.9 % (11.5-14.5); Red Blood Cell (RBC) Count 2.87 mill/uL (4.20-5.40)
[2024-03-12 05:30] LABS: Anisocytosis SLIGHT = 6-15 cells HPF (0-5); Band 9 % (5-11); Burr Cells SLIGHT = 2-5 cells HPF (0-1); Lymphocytes 2 % (21-51); Monocytes 1 % (0-10); Neutrophil 88 % (42-75); Platelet Adequacy Comment Platelets Normal; Poikilocytosis MODERATE=16-30 cells HPF (0-5); Polychromasia SLIGHT = 2-3 cells HPF (0-2); Target Cells SLIGHT = 2-5 cells HPF (0-1); Tear Drops SLIGHT = 2-5 cells HPF (0-1); Toxic Granulation MODERATE; Vacuoles SLIGHT
[2024-03-12 08:03] LABS: Anion Gap 13 mmol/L (10-20); BUN (Urea Nitrogen) 23 mg/dL (9.8-20.1); Calc. Creatinine Clearance 80 mL/min (70-130); Calcium 7.6 mg/dL (7.8-10.44); Carbon Dioxide 20 mmol/L (23-31); Chloride 104 mmol/L (98-107); Estimated GFR 84; Glucose 205 mg/dL (80-115); Potassium 3.2 mmol/L (3.5-5.1); Sodium 134 mmol/L (136-145)
[2024-03-12] MEDS: Enoxaparin 40 MG (0.4 mL) SYRINGE SC SCH (08:40)
[2024-03-12] MEDS: Potassium Chloride 20 MEQ in Premix 1 BAG IVPB SCH (08:41)
[2024-03-12] MEDS: Lactated Ringer's 500 ML IV SCH (09:30)
[2024-03-12 11:33] LABS: Magnesium 1.7 mg/dL (1.6-2.6)
[2024-03-12] MEDS: Magnesium 2 GM/50 ML(in water) 2 GM in Premix 1 BAG IVPB SCH (12:24)
[2024-03-12] MEDS ORDERED: Electrolyte Replacement Protocol FS PRN (17:30)
[2024-03-13 04:53] LABS: Hematocrit 27.6 % (36.0-47.0); Hemoglobin 9.3 g/dL (12.0-16.0); Mean Corpuscular HGB CONC 33.7 g/dL (32.0-36.0); Mean Platelet Volume 11.9 fL (7.4-10.4); Platelet Count 127 10x3/uL (130-400); RBC Distribution Width 19.9 % (11.5-14.5)
[2024-03-13 04:59] LABS: Lactic Acid 1.7 mmol/L (0.5-2.2)
[2024-03-13 05:05] LABS: Anion Gap 13 mmol/L (10-20); BUN (Urea Nitrogen) 27 mg/dL (9.8-20.1); Calc. Creatinine Clearance 77 mL/min (70-130); Calcium 8.3 mg/dL (7.8-10.44); Carbon Dioxide 23 mmol/L (23-31); Chloride 105 mmol/L (98-107); Estimated GFR 80; Glucose 210 mg/dL (80-115); Potassium 3.8 mmol/L (3.5-5.1); Sodium 137 mmol/L (136-145)
[2024-03-13 05:18] LABS: Band 2 % (5-11); Burr Cells SLIGHT = 2-5 cells HPF (0-1); Neutrophil 98 % (42-75); Platelet Adequacy Comment Platelets Decreased; Poikilocytosis SLIGHT = 6-15 cells HPF (0-5); Polychromasia SLIGHT = 2-3 cells HPF (0-2); Target Cells SLIGHT = 2-5 cells HPF (0-1); Tear Drops SLIGHT = 2-5 cells HPF (0-1)
[2024-03-13] MEDS: Hydrocortisone Sod Succ/PF 100 mg/2 ml Vial IVP SCH ×2 (17:35→19:18)
[2024-03-14] MEDS: Acetaminophen 650 MG Suppository PR PRN (02:43)
[2024-03-14 05:11] LABS: #Basophils 0.03 10x3/uL (0.0-0.2); #Eosinphils Less than 0.03 10x3/uL (0.0-0.7); %Basophils 0.2 % (0.0-1.0); %Lymphocytes 5.2 % (21.0-51.0); %Monocytes 3.9 % (0.0-10.0); %Neutrophils 89.5 % (42.0-75.0); Hematocrit 31.8 % (36.0-47.0); Hemoglobin 10.6 g/dL (12.0-16.0); Mean Corpuscular HGB CONC 33.3 g/dL (32.0-36.0); Mean Corpuscular Hemoglobin 30.4 pg (27.0-31.0); Mean Corpuscular Volume 91.1 fL (78.0-98.0); Mean Platelet Volume 12.3 fL (7.4-10.4); Platelet Count 136 10x3/uL (130-400); RBC Distribution Width 19.8 % (11.5-14.5); Red Blood Cell (RBC) Count 3.49 mill/uL (4.20-5.40)
[2024-03-14 05:27] LABS: Anion Gap 13 mmol/L (10-20); BUN (Urea Nitrogen) 30 mg/dL (9.8-20.1); Calc. Creatinine Clearance 90 mL/min (70-130); Calcium 8.4 mg/dL (7.8-10.44); Carbon Dioxide 22 mmol/L (23-31); Chloride 108 mmol/L (98-107); Estimated GFR 94; Glucose 209 mg/dL (80-115); Potassium 3.8 mmol/L (3.5-5.1); Sodium 139 mmol/L (136-145)
[2024-03-14] MEDS: traMADol HCl 50 MG TAB PO SCH (05:33)
[2024-03-14] MEDS: Furosemide 20 MG (2 mL) VIAL SLOW IVP SCH (11:09)
[2024-03-15 05:28] LABS: #Basophils 0.05 10x3/uL (0.0-0.2); %Basophils 0.3 % (0.0-1.0); %Eosinophils 0.2 % (0.0-10.0); %Lymphocytes 13.4 % (21.0-51.0); %Monocytes 5.8 % (0.0-10.0); %Neutrophils 77.8 % (42.0-75.0); Hemoglobin 11.3 g/dL (12.0-16.0); Mean Corpuscular HGB CONC 33.2 g/dL (32.0-36.0); Mean Corpuscular Hemoglobin 30.7 pg (27.0-31.0); Mean Corpuscular Volume 92.4 fL (78.0-98.0); Mean Platelet Volume 12.2 fL (7.4-10.4); Platelet Count 180 10x3/uL (130-400); RBC Distribution Width 19.7 % (11.5-14.5); Red Blood Cell (RBC) Count 3.68 mill/uL (4.20-5.40)
[2024-03-15 05:47] LABS: Anion Gap 14 mmol/L (10-20); BUN (Urea Nitrogen) 31 mg/dL (9.8-20.1); Calc. Creatinine Clearance 106 mL/min (70-130); Calcium 8.1 mg/dL (7.8-10.44); Carbon Dioxide 19 mmol/L (23-31); Chloride 110 mmol/L (98-107); Estimated GFR 95; Glucose 125 mg/dL (80-115); Potassium 3.7 mmol/L (3.5-5.1); Sodium 139 mmol/L (136-145)
[2024-03-15] MEDS: Hydrocortisone Sod Succ/PF 100 mg/2 ml Vial IVP SCH (09:29)
[2024-03-15] MEDS: Ipratropium/Albuterol 3 ML NEB NEB PRN (21:09)
[2024-03-15] MEDS: Furosemide 40 MG (4 mL) VIAL SLOW IVP SCH (22:06)
[2024-03-15 22:46] LABS: Magnesium 1.8 mg/dL (1.6-2.6); Potassium 3.6 mmol/L (3.5-5.1)
[2024-03-16] MEDS: Magnesium 2 GM/50 ML(in water) 2 GM in Premix 1 BAG IVPB SCH (01:31)
[2024-03-16 05:17] LABS: #Basophils 0.19 10x3/uL (0.0-0.2); %Basophils 0.9 % (0.0-1.0); %Eosinophils 0.4 % (0.0-10.0); %Monocytes 8.8 % (0.0-10.0); %Neutrophils 72.7 % (42.0-75.0); Hematocrit 37.7 % (36.0-47.0); Hemoglobin 12.1 g/dL (12.0-16.0); Mean Corpuscular HGB CONC 32.1 g/dL (32.0-36.0); Mean Corpuscular Volume 93.3 fL (78.0-98.0); Mean Platelet Volume 11.9 fL (7.4-10.4); Platelet Count 203 10x3/uL (130-400); RBC Distribution Width 19.9 % (11.5-14.5); Red Blood Cell (RBC) Count 4.04 mill/uL (4.20-5.40)
[2024-03-16] MEDS: Furosemide 40 MG (4 mL) VIAL SLOW IVP SCH (05:27)
[2024-03-16 05:28] LABS: Anion Gap 15 mmol/L (10-20); BUN (Urea Nitrogen) 32 mg/dL (9.8-20.1); Calc. Creatinine Clearance 103 mL/min (70-130); Calcium 8.1 mg/dL (7.8-10.44); Carbon Dioxide 21 mmol/L (23-31); Chloride 111 mmol/L (98-107); Estimated GFR 95; Glucose 185 mg/dL (80-115); Potassium 3.4 mmol/L (3.5-5.1); Sodium 144 mmol/L (136-145)
[2024-03-16] MEDS ORDERED: Potassium Chloride 20 MEQ TAB PO SCH (08:00)
[2024-03-16] MEDS: Potassium Chloride 20 MEQ in Premix 1 BAG IVPB SCH (10:15)
[2024-03-16 13:50] VITALS: BMI 29.2
[2024-03-17 05:23] LABS: #Basophils 0.07 10x3/uL (0.0-0.2); %Basophils 0.3 % (0.0-1.0); %Eosinophils 0.8 % (0.0-10.0); %Lymphocytes 12.1 % (21.0-51.0); %Monocytes 6.3 % (0.0-10.0); %Neutrophils 76.4 % (42.0-75.0); Hematocrit 33.8 % (36.0-47.0); Hemoglobin 11.3 g/dL (12.0-16.0); Mean Corpuscular HGB CONC 33.4 g/dL (32.0-36.0); Mean Corpuscular Hemoglobin 30.3 pg (27.0-31.0); Mean Corpuscular Volume 90.6 fL (78.0-98.0); Mean Platelet Volume 11.8 fL (7.4-10.4); Platelet Count 227 10x3/uL (130-400); RBC Distribution Width 19.6 % (11.5-14.5); Red Blood Cell (RBC) Count 3.73 mill/uL (4.20-5.40)
[2024-03-17 05:31] LABS: Anion Gap 12 mmol/L (10-20); BUN (Urea Nitrogen) 31 mg/dL (9.8-20.1); Calc. Creatinine Clearance 103 mL/min (70-130); Calcium 7.9 mg/dL (7.8-10.44); Carbon Dioxide 26 mmol/L (23-31); Chloride 112 mmol/L (98-107); Estimated GFR 95; Glucose 134 mg/dL (80-115); Potassium 3.6 mmol/L (3.5-5.1); Sodium 146 mmol/L (136-145)
[2024-03-18 05:39] LABS: #Basophils 0.04 10x3/uL (0.0-0.2); %Basophils 0.2 % (0.0-1.0); %Eosinophils 0.8 % (0.0-10.0); %Lymphocytes 12.7 % (21.0-51.0); %Monocytes 5.8 % (0.0-10.0); %Neutrophils 76.7 % (42.0-75.0); Hematocrit 33.7 % (36.0-47.0); Hemoglobin 11.1 g/dL (12.0-16.0); Mean Corpuscular HGB CONC 32.9 g/dL (32.0-36.0); Mean Corpuscular Hemoglobin 30.2 pg (27.0-31.0); Mean Corpuscular Volume 91.6 fL (78.0-98.0); Mean Platelet Volume 12.2 fL (7.4-10.4); Platelet Count 236 10x3/uL (130-400); RBC Distribution Width 19.9 % (11.5-14.5); Red Blood Cell (RBC) Count 3.68 mill/uL (4.20-5.40)
[2024-03-18 05:56] LABS: ALT (SGPT) 8 U/L (8-55); AST (SGOT) 14 U/L (5-34); Albumin 1.9 g/dL (3.4-4.8); Alkaline Phosphatase 40 U/L (40-110); Anion Gap 12 mmol/L (10-20); BUN (Urea Nitrogen) 27 mg/dL (9.8-20.1); Bilirubin, Total 0.7 mg/dL (0.2-1.2); Calc. Creatinine Clearance 101 mL/min (70-130); Calcium 7.8 mg/dL (7.8-10.44); Carbon Dioxide 26 mmol/L (23-31); Chloride 113 mmol/L (98-107); Estimated GFR 94; Globulin 3.1 g/dL (2.4-3.5); Glucose 176 mg/dL (80-115); Potassium 3.6 mmol/L (3.5-5.1); Sodium 147 mmol/L (136-145)
[2024-03-18 16:54] VITALS: BP 127/81; TEMP 98
== END 2024-03-18 17:16 | disposition hospice, inpatient (51) | DRG 871 ==
LOC: ERS 03:12 → CCU 06:52 → MSONC 03-13 15:36
PROVIDERS: ADMIT Student in an Organized Health Care Education/Training Program; ATTEND Internal Medicine
PROC: 05HM33Z Insertion of Infusion Device into Right Internal Jugular Vein, Percutaneous Approach (ICD-10-PCS; principal; 2024-03-10)
PROC: 0DH67UZ Insertion of Feeding Device into Stomach, Via Natural or Artificial Opening (ICD-10-PCS; 2024-03-10)
PROC: 0BH17EZ Insertion of Endotracheal Airway into Trachea, Via Natural or Artificial Opening (ICD-10-PCS; 2024-03-10)
PROC: 4A133R1 Monitoring of Arterial Saturation, Peripheral, Percutaneous Approach (ICD-10-PCS; 2024-03-10)
PROC: 3E043XZ Introduction of Vasopressor into Central Vein, Percutaneous Approach (ICD-10-PCS; 2024-03-10)
PROC: 3E04329 Introduction of Other Anti-infective into Central Vein, Percutaneous Approach (ICD-10-PCS; 2024-03-10)
PROC: 30233J1 Transfusion of Nonautologous Serum Albumin into Peripheral Vein, Percutaneous Approach (ICD-10-PCS; 2024-03-10)
PROC: 5A1945Z Respiratory Ventilation, 24-96 Consecutive Hours (ICD-10-PCS; 2024-03-10)
PROC: 30233N1 Transfusion of Nonautologous Red Blood Cells into Peripheral Vein, Percutaneous Approach (ICD-10-PCS; 2024-03-11)
DX: A41.9 Sepsis, unspecified organism (principal); G93.41 Metabolic encephalopathy; J96.01 Acute respiratory failure with hypoxia; R65.21 Severe sepsis with septic shock; J18.9 Pneumonia, unspecified organism; I21.4 Non-ST elevation (NSTEMI) myocardial infarction; I50.9 Heart failure, unspecified; I11.0 Hypertensive heart disease with heart failure; E03.9 Hypothyroidism, unspecified; Z88.8 Allergy status to other drugs, medicaments and biological substances; J44.9 Chronic obstructive pulmonary disease, unspecified; Z87.891 Personal history of nicotine dependence; Z51.5 Encounter for palliative care; F03.90 Unspecified dementia, unspecified severity, without behavioral disturbance, psychotic disturbance, mood disturbance, and anxiety; D64.9 Anemia, unspecified; E87.6 Hypokalemia; Z66 Do not resuscitate; Z79.4 Long term (current) use of insulin
CPT/HCPCS: 31500; 36415; 36416; 36430; 36556; 36600; 51702; 70450; 71045; 71275; 80048; 80053; 80202; 81001; 81003; 81015; 82805; 83605; 83735; 83880; 84145; 84484; 85025; 85610; 85730; 86850; 86900; 86901; 87040; 87081; 93005; 94002; 94003; 94640; 94660; 96365; 96366; 96375; J1650; J1720; J1815; J1940; J1956; J2060; J2470; J2543; J3010; J3370; J3475; J3480; J7030; J7120; J7620; P9016; P9047; Q9967